=== PATIENT | male | born 1985 | race Caucasian/White ===

== ENCOUNTER 2017-06-06 16:25 | Emergency (ER) | payer SELFPAY ==
[~2017-06-06] VITALS: Wt 79.4 kg
[~2017-06-06 16:25] MED LIST: AMOXICILLIN500 MG PO; MOTRIN800 MG PO
[2017-06-06] MEDS ORDERED: CEPHALEXIN500 M1 PO (18:46)
== END 2017-06-06 19:04 | disposition home or self-care (01) ==
LOC: ED 16:25
DX: S70.361A Insect bite (nonvenomous), right thigh, initial encounter (principal); L03.115 Cellulitis of right lower limb; F17.200 Nicotine dependence, unspecified, uncomplicated; W57.XXXA Bitten or stung by nonvenomous insect and other nonvenomous arthropods, initial encounter; Y93.89 Activity, other specified; Y92.9 Unspecified place or not applicable; Y99.9 Unspecified external cause status